=== PATIENT | female | born 1970 | race American Indian/Alaskan Native ===

== ENCOUNTER 2016-11-03 10:26 | Day surgery (SDC) | payer BC ==
--- NOTE | 2016-11-02 17:36 | History and Physical Report ---
History of Present Illness History of present illness: Patient has been reassessed/reevaluated. H&P has been reviewed. No interval changes. This is a 45 years old female who presents with menstrual disorder. She complains of irregular menses, mid-cycle spotting, heavy bleeding, dysmenorrhea and fatigue, but denies lack of menses, clotting, history of ovarian cysts, history of thyroid disease, history of fibroids, history of PCOS, history of bleeding disorder, lightheadedness and cramping. Interval between menses is 15- 20 days. Menstrual flow lasts > 7 days. Vital Signs: Patient Profile: 45 Years Old Female LMP: 10/26/2016 Height: 62.5 inches (158.75 cm) Weight: 202 pounds BMI: 36.35 Menstrual History: LMP (date): 10/26/2016 Current Method of Contraception: IUD Date of Last Pap Smear: 02/20/2016 Past History : 3 Term Births: 3 Living Children: 3 Para: 3 Aborta: 0 Elect. Ab: 0 Spont. Ab: 0 Ectopics: 0 [employer] History Abnormal PAP: negative Infection History HIV Risk Eval: no Personal hx. of genital herpes: no Hx of STD: None Active Medications (reviewed today): None Current Allergies (reviewed today): No known allergies Past Medical History: Negative Past Medical History Family History Summary: General Comments - FH: Family History of Hypertension mother. Family History of Coronary Heart disease gmf age 58 Family History Breast Cancer pgm dx in her 70s Risk Factors: Smoked Tobacco Use: Never smoker Smokeless Tobacco Use: Never Drug use: no Alcohol use: yes Type: occ Exercise: yes Seatbelt use: 100 % PAP Smear History: Date of Last PAP Smear: 02/20/2016 Review of Systems See HPI Past History Past Medical History: other (See HPI) Past Surgical History: Other (See HPI) Family history: other (See HPI) Medications and Allergies Allergies Allergy/AdvReac Type Severity Reaction Status Date / Time No Known Allergies Allergy Unverified 10/31/16 10:02 Home Medications Medication Instructions Recorded Confirmed Last Taken Type No Known Home Medications [No 10/31/16 10/31/16 Unknown History Reported Home Medications] Review of Systems Constitutional: other (See HPI) Exam - Physical Exam Narrative exam: HEENT: normocephalic, no lesions or deformities Skin no ulcers, xanthomas Breasts: no masses or nipple discharge CV: regular, normal S1-S2, no murmur, no rub, no gallop Abdomen: soft, non-tender, no masses, bowel sounds normal Musculoskeletal: grossly normal ROM in joints, no joint tenderness or muscle weakness Neuro: no gross anomalities Extremities: normal alignment, no joint enlargement, crepitus, masses or tenderness; normal tone and strength [employer] Exams Vulva/Vagina: normal appearance, no discharge, lesions. No evidence of cystocele or rectocele. Cervix: normal appearance, no lesions, no discharge IUD string not seen Uterus: normal size and position, midline, mobile Adnexae: no masses or tenderness Rectovaginal: exam defered Assessment and Plan - Patient Problems (1) Excessive and frequent menstruation with irregular cycle Current Visit: Yes Status: Acute Plan to address problem: Diagnosis explained to patient . Questions answered. Medical and surgical treatment options discussed Patient desires definitive treatment Discussed risks and benefits of procedure. Informed endometrial ablation does not treat dymenorrhea or myomas. Patient does not desire future fertility Patient desires IUD removal. Discussed risk of surgery including infection, bleeding and risk of perforating her uterus. Questions answered. Patient understands and desires to proceed (2) Obesity (BMI 30-39.9) Current Visit: Yes Status: Acute (3) IUD (intrauterine device) in place Current Visit: Yes Status: Acute Plan to address problem: Will remove
[~2016-11-03 10:26] MED LIST: PEPCID PO NR; VERSED IV NR
[2016-11-03] MEDS ORDERED: ZOFRAN IV PRN (10:58)
[2016-11-03] MEDS ORDERED: DILAUDID IV PRN (10:58)
[2016-11-03] MEDS ORDERED: PERCOCET 5/325 PO PRN (10:58)
--- NOTE | 2016-11-03 10:59 | Anesthesia Day of Surgery ---
Anesthesia Day of Surgery - Day of Surgery Patient Examined: Yes Patient H&P Reviewed: Yes Patient is NPO: Yes
--- NOTE | 2016-11-03 10:59 | Anesthesia Consultation ---
Anesthesia Consult and Med Hx Date of service: 11/03/16 - Airway Anesthetic Teeth Evaluation: Good (BRACES) ROM Head & Neck: Adequate Mental/Hyoid Distance: Adequate Mallampati Class: Class II Intubation Access Assessment: Probably Good - Pulmonary Exam CTA: Yes - Cardiac Exam Cardiac Exam: RRR - Pre-Operative Health Status ASA Pre-Surgery Classification: ASA2 Proposed Anesthetic Plan: General - Pulmonary Hx Smoking: No Hx Asthma: No - Cardiovascular System Hx Hypertension: No - Central Nervous System Hx Seizures: No CVA: No Hx Psychiatric Problems: No - Endocrine Hx Renal Disease: No Hx Liver Disease: No Hx Insulin Dependent Diabetes: No Hx Hypothyroidism: No - Other Systems Hx Cancer: No Hx Obesity: Yes - Additional Comments Anesthesia Medical History Comments: PONV
[2016-11-03] MEDS: LACTATED RINGERS 1,000 ML IV SCH ×2 (11:25→14:54)
[2016-11-03] MEDS ORDERED: TRANSDERM-SCOP TD NR (12:00)
[2016-11-03] MEDS ORDERED: DIPRIVAN 10 MG/ML IV ONE (12:27)
[2016-11-03] MEDS ORDERED: XYLOCAINE MPF 2% ONE (12:28)
[2016-11-03] MEDS ORDERED: DILAUDID ONE (12:28)
[2016-11-03] MEDS ORDERED: ZOFRAN ONE (13:03)
[2016-11-03] MEDS ORDERED: DECADRON ONE (13:03)
[2016-11-03] MEDS ORDERED: NACL 0.9% IR ONE (13:45)
--- NOTE | 2016-11-03 14:24 | Short Stay Summary ---
Short Stay Documentation Date of service: 11/03/16 - History H&P: dictated Past Medical History: other (See HPI) Past Surgical History: Other (See HPI) - Allergies and Medications Current Medications: Allergies No Known Allergies Allergy (Unverified 10/31/16 10:02) Home Medications Medication Instructions Recorded Confirmed Last Taken Type Acetaminophen/Codeine [Tylenol #3] 1 tab PO Q4HR PRN #20 tablet 11/03/16 Unknown Rx Doxycycline [Vibramycin CAP] 100 mg PO Q12HR #14 capsule 11/03/16 Unknown Rx Ibuprofen [Motrin 800 MG tab] 800 mg PO Q6H PRN #30 tablet 11/03/16 Unknown Rx Active Medications Famotidine (Pepcid) 20 mg PO PREOP NR Stop: 11/03/16 23:45 Last Admin: 11/03/16 11:20 Dose: 20 mg Hydromorphone HCl (Dilaudid) 0.5 mg IV Q10MIN PRN PRN Reason: Pain , Severe (7-10) Stop: 11/06/16 10:59 Lactated Ringer's (Lactated Ringers) 1,000 mls @ 150 mls/hr IV DIRECT MISHA Last Admin: 11/03/16 11:25 Dose: 150 mls/hr Midazolam HCl (Versed) 2 mg IV PREOP NR Stop: 11/03/16 23:59 Last Admin: 11/03/16 12:11 Dose: 2 mg Scopolamine (Transderm-Scop) 1 each TD PREOP NR Stop: 11/03/16 23:59 Last Admin: 11/03/16 11:40 Dose: 1 each - Brief post op/procedure progress note Date of procedure: 11/03/16 Pre-op diagnosis: see dictated note - Hospital course Hospital course: Patient was admitted underwent the above him procedure without any complications. Patient will be discharged with follow-up in office in 1-2 weeks for postop check. - Disposition Condition at discharge: Good Disposition: DISCHARGED TO HOME OR SELFCARE - Discharge Diagnoses (1) Excessive and frequent menstruation with irregular cycle Status: Acute (2) Obesity (BMI 30-39.9) Status: Acute (3) IUD (intrauterine device) in place Status: Acute Short Stay Discharge Plan Activity: no restrictions Diet: regular Additional Instructions: Patient call office he has any fever chills nausea vomiting or pain not relieved with pain medicine. Follow up with: PRIMARY CARE, [Primary Care Provider] - 7 Days Prescriptions: Ibuprofen [Motrin 800 MG tab] 800 mg PO Q6H PRN #30 tablet PRN Reason: Pain Acetaminophen/Codeine [Tylenol #3] 1 tab PO Q4HR PRN #20 tablet PRN Reason: Pain Doxycycline [Vibramycin CAP] 100 mg PO Q12HR #14 capsule
--- NOTE | 2016-11-03 14:25 | Operative Report ---
Operative Report Operative Report: Date of procedure: 11/03/2016 Pre-operative diagnosis: Menorrhagia Post-operative diagnosis: Same Procedure name(s): NovaSure endometrial ablation with hysteroscopy and removal of IUD Surgeon: Link Valente MD Promotions Associate: None Anesthesia: General EBL: Minimal Complications: None Findings: Patient was a Mirena IUD in place with the strings folded inside the uterine cavity there was clearly seen with hysteroscopy. Patient also with thickened endometrium throughout her U uterine cavity both tubal ostia were seen. Specimen(s): IUD Procedure: Patient was brought to operating room. Where general anesthesia was induced on difficulty. She was placed in the dorsal lithotomy position. Prepped and draped in usual sterile manner. Urinary bladder was emptied with a red rubber catheter. Speculum was placed in the vagina. The cervical length and uterine cavity was then assessed with a sound. Cervical length was 4.0 cm the total uterine cavity was 12 cm. The hysteroscope was then placed through the cervical os. With the findings as noted above. The IUD string was grasped with a hysteroscopic grasper and pulled through the cervical os intact. The NovaSure was then placed through the cervical os the uterine width was then measured at the 4.7 cm. After passing the testing for cavity integrity, and NovaSure ablation was then started. The power setting was at 168w and the procedure lasted 54 seconds. The NovaSure applicator was then removed. There was large amount of tissue on the NovaSure. Post procedure hysteroscopy showed a complete cavity ablation. Our instruments are removed. The patient tolerated the procedure well and was awakened in the operating room. An attempt to recover in good condition.
[2016-11-03 16:37] VITALS: BP 128/75
== END 2016-11-03 16:30 | disposition home or self-care (01) ==
LOC: OR 10:26
PROVIDERS: ATTEND Obstetrics & Gynecology
DX: N92.1 Excessive and frequent menstruation with irregular cycle (principal); E66.9 Obesity, unspecified; Z68.35 Body mass index [BMI] 35.0-35.9, adult; Z30.432 Encounter for removal of intrauterine contraceptive device; Z82.49 Family history of ischemic heart disease and other diseases of the circulatory system; Z80.3 Family history of malignant neoplasm of breast
CPT/HCPCS: 58562; 58563; 81025; 88302; A4217; J1100; J1170; J2250; J2405; J2704; J7120